=== PATIENT | male | born 1940 ===

== ENCOUNTER 2018-01-22 11:48 | Observation (INO) | payer MEDICARE, OTHER ==
--- NOTE | 2018-01-22 12:27 | ED PDOC ---
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 Pt went to doctor 's office for BLE numbness X 2 months, abdominal pain X 2 months and palpitations. Denies CP, SOB, BLACK, visual changes. Pt has been noncompliant with medications X 2 years and has not medically evaluated during that time. Past Medical History Reviewed: Nursing Documentation, Vital Signs Vital Signs: Last Vital Signs Temp 98.1 F 01/22/18 12:04 Pulse 110 H 01/22/18 12:04 Resp 18 01/22/18 12:04 BP 170/97 H 01/22/18 12:04 Pulse Ox 94 L 01/22/18 12:04 - Medical History PMH: HTN - Family History Family History: States: Unknown Family Hx - Living Arrangements Living Arrangements: With Family - Social History Current smoker - smoking cessation education provided: No Alcohol: None - Home Medications Home Medications: Ambulatory Orders Medication Instructions Recorded Metoprolol Tartrate 25 mg PO BID #40 tablet 01/23/18 - Allergies Allergies/Adverse Reactions: Allergies Allergy/AdvReac Type Severity Reaction Status Date / Time No Known Allergies Allergy Verified 01/22/18 12:01 Review of Systems Constitutional: Negative for: Fever, Chills Eyes: Negative for: Vision Change Cardiovascular: Positive for: Palpitations. Negative for: Chest Pain Respiratory: Negative for: Cough, Shortness of Breath Gastrointestinal: Positive for: Abdominal Pain. Negative for: Nausea, Vomiting , Diarrhea Genitourinary Male: Negative for: Dysuria, Hematuria Musculoskeletal: Negative for: Back Pain Skin: Negative for: Rash, Lesions Neurological: Positive for: Numbness. Negative for: Weakness, Incoordination, Change in Speech, Confusion, Seizures, Altered Mental Status, Headache, Dizziness Physical Exam - Reviewed Nursing Documentation Reviewed: Yes Vital Signs Reviewed: Yes - Physical Exam Appears: Positive for: Well, No Acute Distress Head Exam: Positive for: ATRAUMATIC, NORMAL INSPECTION Skin: Positive for: Normal Color, Warm, Dry Eye Exam: Positive for: Normal appearance, EOMI, PERRL Cardiovascular/Chest: Positive for: Tachycardia. Negative for: Irregularly Irregular Respiratory: Positive for: Normal Breath Sounds. Negative for: Rales, Rhonchi, Wheezing Gastrointestinal/Abdominal: Positive for: Bowel Sounds, Soft, Tenderness ( Minimal BLQ), Distended Extremity: Positive for: Normal ROM, Capillary Refill (<2 sec). Negative for: Tenderness, Deformity, Swelling Neurologic/Psych: Positive for: Alert, specialty foods cook II-XII, Oriented. Negative for: Motor/Sensory Deficits, Aphasia, Facial Droop - Laboratory Results Result Diagrams: 01/23/18 04:20 01/23/18 04:20 - ECG Interpretation Of ECG: Ectopic atrial tachy @ 107, ST depression inferiorly. O2 Sat by Pulse Oximetry: 94 Pulse Ox Interpretation: Abnormal - Physician Consult Information Time Consulting Physican Contacted: 13:56 Physician Contacted: Dave Shannon Outcome Of Conversation: Recommends Propranolol IV, admit to Hospitalist, Dr. Lara for Cardio consult. Medical Decision Making Medical Decision Makin yo male with ectopic tachycardia, abdominal pain and BLE numbness. - labs - EKG - CXR - CT abd/pelvis Accession No. : [id number] Patient Name / ID : JADEN BEAUCHAMP / [id number] Exam Date : 01/22/2018 12:35:52 ( Approved ) Study Comment : Sex / Age : M / 77Y Creator : Vinnie Riley MD Dictator : Vinnie Riley MD Forest Firefighter : Self Rising Flour Mixer : Vinnie Riley MD Approver2 : Report Date : 01/22/2018 12:52:52 My Comment : Date of service: 01/22/2018 HISTORY: Palpitations COMPARISON: No prior. FINDINGS: LUNGS: No active pulmonary disease. PLEURA: No significant pleural effusion identified, no pneumothorax apparent. CARDIOVASCULAR: No radiographic findings to suggest acute or significant cardiovascular disease. OSSEOUS STRUCTURES: No significant abnormalities. VISUALIZED UPPER ABDOMEN: Normal. OTHER FINDINGS: None. IMPRESSION: No active disease. CT FINDINGS: LOWER THORAX: Mild cardiomegaly. Bilateral basilar dependent atelectasis slightly grater at the right than the left sides. Tiny hiatal hernia identified. LIVER: Diffusely diminished attenuation is seen throughout the liver compatible with hepatic steatosis. No intrahepatic biliary dilation or definitive hepatic mass demonstated. GALLBLADDER AND BILE DUCTS: Unremarkable. PANCREAS: Unremarkable. No gross lesion or ductal dilatation. SPLEEN: Unremarkable. ADRENALS: Unremarkable. No mass. KIDNEYS AND URETERS: Unremarkable. No hydronephrosis. No solid mass VASCULATURE: Unremarkable. No aortic aneurysm. BOWEL: Stomach appears unremarkable. No bowel obstruction apparent. Left colonic diverticular changes are identfied without acute reaction related or marked mural thickening. Lack oral contrast limits evaluation the gastrointestinal tract throughout. APPENDIX: Normal appendix. PERITONEUM: Unremarkable. No free fluid. No free air. LYMPH NODES: Unremarkable. No enlarged lymph nodes. BLADDER: Unremarkable. REPRODUCTIVE: Mildly enlarged prostate gland. BONES: No acute fracture. OTHER FINDINGS: None. IMPRESSION: No acute abdominal or pelvic findings although left colonic diverticulosis is appreciated. 14:20 Dr. Marco drew. 15:00 Dr. Lara reviewed EKG, recommends Atenolol 25 mg PO daily, echo, Holter monitor and discharge home to follow-up with Dr. Shannon as outpatient. Disposition - Clinical Impression Clinical Impression: Ectopic atrial tachycardia - Patient ED Disposition Is Patient to be Admitted: Yes - Disposition Disposition Time: 14:01 Condition: STABLE - Pt Status Changed To: Hospital Disposition Of: Observation
[2018-01-22 12:49] LABS: BASO % 0.9 % (0.0-2.0); EOS # 0.3 K/uL (0.0-0.7); EOS % 6.8 % (0.0-4.0); HEMOGLOBIN 15.8 g/dL (12.0-18.0); LYMPH # 0.6 K/uL (1.0-4.3); LYMPH % 12.2 % (20.0-40.0); MEAN CELL VOLUME 104.4 fl (80.0-94.0); MEAN CORPUSCULAR HEMOGLOBIN 36.1 pg (27.0-31.0); MEAN CORPUSCULAR HGB CONC 34.6 g/dL (33.0-37.0); MEAN PLATELET VOLUME 9.8 fl (7.2-11.7); MONO # 0.4 K/uL (0.0-0.8); MONO % 8.6 % (0.0-10.0); NEUT # 3.6 K/uL (1.8-7.0); NEUT % 71.5 % (50.0-75.0); NRBC % 0.2 % (0.0-0.0); RBC 4.37 Mil/uL (4.40-5.90); RED CELL DISTRIBUTION WIDTH 13.7 % (11.5-14.5)
[2018-01-22 12:54] LABS: PROTHROMBIN TIME 11.2 Seconds (9.8-13.1)
--- NOTE | 2018-01-22 12:54 | RAD ---
Date of service: 01/22/2018 HISTORY: Palpitations COMPARISON: No prior. FINDINGS: LUNGS: No active pulmonary disease. PLEURA: No significant pleural effusion identified, no pneumothorax apparent. CARDIOVASCULAR: No radiographic findings to suggest acute or significant cardiovascular disease. OSSEOUS STRUCTURES: No significant abnormalities. VISUALIZED UPPER ABDOMEN: Normal. OTHER FINDINGS: None. IMPRESSION: No active disease.
[2018-01-22 12:57] LABS: PARTIAL THROMBOPLASTIN TIME 31.5 Seconds (25.6-37.1)
[2018-01-22 13:09] LABS: ALB/GLOB RATIO 1.3 (1.0-2.1); ALBUMIN 4.3 g/dL (3.5-5.0); ALT/SGPT 82 U/L (21-72); AST/SGOT 118 U/L (17-59); BLOOD UREA NITROGEN 13 mg/dl (9-20); CALCIUM 9.9 mg/dL (8.4-10.2); GFR AFRICAN-AMERICAN > 60; GFR NON-AFRICAN AMERICAN > 60
[2018-01-22] MEDS ORDERED: Iohexol 300 100 ML IJ ONE (13:21)
[2018-01-22] MEDS ORDERED: Sodium Chloride 0.9% 50 ML IV ONE (13:22)
[2018-01-22] MEDS ORDERED: Propranolol 1 mg/mL Inj IV STA (13:55)
[2018-01-22] MEDS ORDERED: Propranolol 1 mg/mL Inj ONE (14:23)
--- NOTE | 2018-01-22 14:42 | CT ---
Date of service: 01/22/2018 PROCEDURE: CT Abdomen and Pelvis with contrast HISTORY: BLQ pain COMPARISON: None. TECHNIQUE: Following the intravenous administration of iodinated contrast material, a CT examination of the abdomen and pelvis performed from the domes of the diaphragms to the symphysis pubis with reformatted datasets provided in axial, sagittal and coronal planes. Oral contrast was not administered as per referring physician request. Contrast dose: Omnipaque 300, 95 cc Radiation dose: Total exam DLP = 800.53 mGy-cm. This CT exam was performed using one or more of the following dose reduction techniques: Automated exposure control, adjustment of the mA and/or kV according to patient size, and/or use of iterative reconstruction technique. FINDINGS: LOWER THORAX: Mild cardiomegaly. Bilateral basilar dependent atelectasis slightly greater at the right than left sides. Tiny hiatal hernia is identified. LIVER: Diffusely diminished attenuation is seen throughout the liver compatible with hepatic steatosis. No intrahepatic biliary dilatation or definitive hepatic mass demonstrated. GALLBLADDER AND BILE DUCTS: Unremarkable. PANCREAS: Unremarkable. No gross lesion or ductal dilatation. SPLEEN: Unremarkable. ADRENALS: Unremarkable. No mass. KIDNEYS AND URETERS: Unremarkable. No hydronephrosis. No solid mass. VASCULATURE: Unremarkable. No aortic aneurysm. BOWEL: Stomach appears unremarkable. No bowel obstruction apparent. Left colonic diverticular changes are identified which are concentrated at the sigmoid segment without acute reaction related or marked mural thickening. Lack of oral contrast limits evaluation the gastrointestinal tract. APPENDIX: Normal appendix. PERITONEUM: Unremarkable. No free fluid. No free air. LYMPH NODES: Unremarkable. No enlarged lymph nodes. BLADDER: Unremarkable. REPRODUCTIVE: Unremarkable. BONES: No acute fracture. OTHER FINDINGS: None. IMPRESSION: No acute abdominal or pelvic findings although left colonic diverticulosis is appreciated. Hepatic steatosis.
--- NOTE | 2018-01-22 15:50 | CP.PCM.HP ---
History of Present Illness - History of Present Illness History of Present Illness: 77 yo male with history of HTN, COPD and Dementia sent here by his radiography technician for admission because of atrial tachycardia. Denied SOB or chest pain but complained of increasing abdominal girth in the past 2 months and numbness of the legs. Noncompliant with medications for 2 yrs. Present on Admission - Present on Admission Any Indicators Present on Admission: No History of DVT/PE: No History of Uncontrolled Diabetes: No Urinary Catheter: No Decubitus Ulcer Present: No Review of Systems - Review of Systems All systems: reviewed and no additional remarkable complaints except (aside from those mentioned above, 12 point system review were negative by me) Past Patient History - Tetanus Immunizations Tetanus Immunization: Unknown - Past Social History Smoking Status: Former Smoker Chewing Tobacco Use: No Cigar Use: No Alcohol: > 2 Drinks/Day (drinks 2 shots of Baccardi daily) Home Situation {Lives}: With Family - CARDIAC Hx Cardia Arrhythmia: Yes Hx Hypertension: Yes - PULMONARY Hx Respiratory Disorders: Yes Hx Chronic Obstructive Pulmonary Disease (COPD): Yes - NEUROLOGICAL Hx Dementia: Yes - HEENT Hx Cataracts: Yes Hx Glaucoma: Yes - RENAL Hx Chronic Kidney Disease: No - ENDOCRINE/METABOLIC Hx Endocrine Disorders: No - HEMATOLOGICAL/ONCOLOGICAL Hx Blood Disorders: No - INTEGUMENTARY Hx Dermatological Problems: No - MUSCULOSKELETAL/RHEUMATOLOGICAL Hx Musculoskeletal Disorders: No - GASTROINTESTINAL Hx Gastritis: Yes - GENITOURINARY/GYNECOLOGICAL Hx Genitourinary Disorders: No - PSYCHIATRIC Hx Psychophysiologic Disorder: Yes - SURGICAL HISTORY Other/Comment: glaucoma, cataract - ANESTHESIA Hx Anesthesia: Yes Hx Anesthesia Reactions: No Meds Allergies/Adverse Reactions: Allergies Allergy/AdvReac Type Severity Reaction Status Date / Time No Known Allergies Allergy Verified 01/22/18 12:01 Physical Exam - Constitutional Appears: No Acute Distress - Head Exam Head Exam: ATRAUMATIC - Eye Exam Eye Exam: absent: Scleral icterus - ENT Exam ENT Exam: Mucous Membranes Moist - Neck Exam Neck exam: Negative for: Meningismus - Respiratory Exam Respiratory Exam: absent: Rales, Rhonchi, Wheezes, Respiratory Distress - Cardiovascular Exam Cardiovascular Exam: REGULAR RHYTHM, +S1, +S2 - GI/Abdominal Exam GI & Abdominal Exam: Soft (globularly enlarged). absent: Tenderness - Rectal Exam Rectal Exam: Deferred - Extremities Exam Extremities exam: Negative for: calf tenderness, pedal edema - Back Exam Back exam: NORMAL INSPECTION - Neurological Exam Neurological exam: Alert, Oriented x3 - Psychiatric Exam Psychiatric exam: Normal Affect - Skin Skin Exam: Dry, Intact Results - Vital Signs Recent Vital Signs: Last Vital Signs Temp 99.2 F 01/22/18 15:45 Pulse 81 01/22/18 15:45 Resp 18 01/22/18 15:45 BP 149/89 01/22/18 15:45 Pulse Ox 95 01/22/18 15:45 - Labs Result Diagrams: 01/22/18 12:30 01/22/18 12:30 Labs: Laboratory Results - last 24 hr 01/22/18 01/22/18 01/22/18 12:30 12:30 12:30 WBC 5.0 RBC 4.37 L Hgb 15.8 Hct 45.6 MCV 104.4 H MCH 36.1 H MCHC 34.6 RDW 13.7 Plt Count 102 L MPV 9.8 Neut % (Auto) 71.5 Lymph % (Auto) 12.2 L [place] % (Auto) 8.6 Eos % (Auto) 6.8 H Baso % (Auto) 0.9 Neut # (Auto) 3.6 Lymph # (Auto) 0.6 L [place] # (Auto) 0.4 Eos # (Auto) 0.3 Baso # (Auto) 0.0 PT 11.2 INR 1.0 APTT 31.5 Sodium 141 Potassium 4.2 Chloride 104 Carbon Dioxide 27 Anion Gap 14 BUN 13 Creatinine 1.1 Est GFR ( Amer) > 60 Est GFR (Non-Af Amer) > 60 Random Glucose 97 Calcium 9.9 Total Bilirubin 2.1 H AST 118 H ALT 82 H Alkaline Phosphatase 112 Troponin I 0.0200 Total Protein 7.7 Albumin 4.3 Globulin 3.4 Albumin/Globulin Ratio 1.3 TSH 3rd Generation 1.06 Assessment & Plan - Assessment and Plan (Free Text) Assessment: 77 yo male with history of HTN, COPD and Dementia sent here by his radiography technician for admission because of atrial tachycardia. Denied SOB or chest pain but complained of increasing abdominal girth in the past 2 months and numbness of the legs. Noncompliant with medications for 2 yrs. 1. Atrial Tachycardia rate controlled after 1mg of IV Propranolol Metoprolol 25mg PO q 12hrs 2. Increased Abdominal Girth CT scan of abdomen: fatty liver, no ascites 3. HTN BP stable Metoprolol 25mg PO q 12hrs 4. COPD CXray negative for any active disease asymptomatic Duonebs q 4hrs prn for SOB/wheezing
--- NOTE | 2018-01-22 18:18 | CARD ---
APPROVED REPORT Date of service: 01/22/2018 <Conclusion> Atrial flutter 2:1 conduction Left axis deviation Right bundle branch block Marked ST abnormality, possible inferior subendocardial injury Abnormal ECG
--- NOTE | 2018-01-22 18:49 | US ---
Date of service: 01/22/2018 PROCEDURE: Bilateral lower extremity venous duplex Doppler. HISTORY: h/o DVT? COMPARISON: None available. TECHNIQUE: Bilateral common femoral, superficial femoral, popliteal and posterior tibial veins were evaluated. Flow was assessed with color Doppler, compressibility, assessment of phasic flow and augmentation response. FINDINGS: COMMON FEMORAL VEIN: Right CFV: Unremarkable. Left CFV: Unremarkable. SUPERFICIAL FEMORAL VEIN: Right SFV: Unremarkable. Left SFV: Unremarkable. POPLITEAL VEIN: Right Popliteal: Unremarkable. Left Popliteal: Unremarkable. POSTERIOR TIBIAL VEIN: Right PTV: Unremarkable. Left PTV: Unremarkable. OTHER FINDINGS: None. IMPRESSION: No evidence of deep venous thrombosis.
--- NOTE | 2018-01-22 18:50 | CP.PCM.CON ---
History of Present Illness - History of Present Illness History of Present Illness: 77 yo male admitted with atrial tachycardia , history of COPD, alcohol use medication noncompliance. Pt in ECHO lab unable to examine. Laboratories unremarkable except for elevated LFTs c/w alcohol use. Hemodynamically stable. Started on low dose Beta Felix. Past Patient History - Tetanus Immunizations Tetanus Immunization: Unknown - Past Social History Smoking Status: Former Smoker Chewing Tobacco Use: No Cigar Use: No Alcohol: > 2 Drinks/Day (drinks 2 shots of Baccardi daily) Home Situation {Lives}: With Family - CARDIAC Hx Cardiac Disorders: Yes Hx Hypertension: Yes - PULMONARY Hx Respiratory Disorders: No Other/Comment: smoking - NEUROLOGICAL Hx Neurological Disorder: No - HEENT Hx Glaucoma: Yes Other/Comment: cataracts - RENAL Hx Chronic Kidney Disease: No - ENDOCRINE/METABOLIC Hx Endocrine Disorders: No - HEMATOLOGICAL/ONCOLOGICAL Hx Blood Disorders: No Hx Blood Transfusions: No - INTEGUMENTARY Hx Dermatological Problems: No - MUSCULOSKELETAL/RHEUMATOLOGICAL Hx Musculoskeletal Disorders: No - GASTROINTESTINAL Hx Gastrointestinal Disorders: Yes Hx Gastritis: Yes - GENITOURINARY/GYNECOLOGICAL Hx Genitourinary Disorders: No - PSYCHIATRIC Hx Psychophysiologic Disorder: No - SURGICAL HISTORY Hx Surgeries: Yes Other/Comment: glaucoma, cataract; varicose vein surgery 30 years ago per - ANESTHESIA Hx Anesthesia: Yes Hx Anesthesia Reactions: No Meds Allergies/Adverse Reactions: Allergies Allergy/AdvReac Type Severity Reaction Status Date / Time No Known Allergies Allergy Verified 01/22/18 12:01 - Medications Medications: Current Medications Docusate Sodium (Colace) 100 mg PO BID PRN PRN Reason: Constipation Last Admin: 01/22/18 17:33 Dose: 100 mg Enoxaparin Sodium (Lovenox) 40 mg SC DAILY [facility] PRN Reason: Protocol Metoprolol Tartrate (Lopressor) 25 mg PO Q12 [facility] Pantoprazole Sodium (Protonix Ec Tab) 40 mg PO DAILY [facility] Results - Vital Signs Recent Vital Signs: Last Vital Signs Temp 99.2 F 01/22/18 15:45 Pulse 84 01/22/18 16:40 Resp 18 01/22/18 16:40 BP 149/89 01/22/18 15:45 Pulse Ox 95 01/22/18 15:45 - Labs Result Diagrams: 01/22/18 12:30 01/22/18 12:30 Labs: Laboratory Results - last 24 hr 01/22/18 01/22/18 01/22/18 12:30 12:30 12:30 WBC 5.0 RBC 4.37 L Hgb 15.8 Hct 45.6 MCV 104.4 H MCH 36.1 H MCHC 34.6 RDW 13.7 Plt Count 102 L MPV 9.8 Neut % (Auto) 71.5 Lymph % (Auto) 12.2 L [place] % (Auto) 8.6 Eos % (Auto) 6.8 H Baso % (Auto) 0.9 Neut # (Auto) 3.6 Lymph # (Auto) 0.6 L [place] # (Auto) 0.4 Eos # (Auto) 0.3 Baso # (Auto) 0.0 PT 11.2 INR 1.0 APTT 31.5 Sodium 141 Potassium 4.2 Chloride 104 Carbon Dioxide 27 Anion Gap 14 BUN 13 Creatinine 1.1 Est GFR ( Amer) > 60 Est GFR (Non-Af Amer) > 60 Random Glucose 97 Calcium 9.9 Total Bilirubin 2.1 H AST 118 H ALT 82 H Alkaline Phosphatase 112 Troponin I 0.0200 NT-Pro-B Natriuret Pep Total Protein 7.7 Albumin 4.3 Globulin 3.4 Albumin/Globulin Ratio 1.3 TSH 3rd Generation 1.06 01/22/18 17:00 WBC RBC Hgb Hct MCV MCH MCHC RDW Plt Count MPV Neut % (Auto) Lymph % (Auto) [place] % (Auto) Eos % (Auto) Baso % (Auto) Neut # (Auto) Lymph # (Auto) [place] # (Auto) Eos # (Auto) Baso # (Auto) PT INR APTT Sodium Potassium Chloride Carbon Dioxide Anion Gap BUN Creatinine Est GFR ( Amer) Est GFR (Non-Af Amer) Random Glucose Calcium Total Bilirubin AST ALT Alkaline Phosphatase Troponin I NT-Pro-B Natriuret Pep 286 Total Protein Albumin Globulin Albumin/Globulin Ratio TSH 3rd Generation Assessment & Plan - Assessment and Plan (Free Text) Assessment: EKG c/w atrial tachycardia 2:1 block ( lead II) , hemodynamically stable. No chest pain clinical CHF. Pt stable for DC in am and outpt f/u on Beta Felix CT abdomen unremarkable Pt can have outpt Holter and f/u with Dr. Garcia shirt finisher Echo pending
[2018-01-22] MEDS ORDERED: Pneumococcal 23-Valent Vaccine IM ONE (22:33)
[2018-01-23 05:57] LABS: EOS # 0.5 K/uL (0.0-0.7); HEMOGLOBIN 13.9 g/dL (12.0-18.0); LYMPH # 0.9 K/uL (1.0-4.3); LYMPH % 21.2 % (20.0-40.0); MEAN CELL VOLUME 106.5 fl (80.0-94.0); MEAN CORPUSCULAR HEMOGLOBIN 36.2 pg (27.0-31.0); MONO # 0.4 K/uL (0.0-0.8); MONO % 10.4 % (0.0-10.0); NEUT # 2.3 K/uL (1.8-7.0); NEUT % 56.4 % (50.0-75.0); NRBC % 0.1 % (0.0-0.0); RBC 3.84 Mil/uL (4.40-5.90); RED CELL DISTRIBUTION WIDTH 13.8 % (11.5-14.5); WHITE BLOOD COUNT 4.1 K/uL (4.8-10.8)
[2018-01-23 06:22] LABS: BLOOD UREA NITROGEN 16 mg/dl (9-20); CALCIUM 9.2 mg/dL (8.4-10.2); GFR AFRICAN-AMERICAN > 60; GFR NON-AFRICAN AMERICAN 54; HDL CHOLESTEROL 44 MG/DL (30-70)
[2018-01-23 06:23] LABS: LDL CHOLESTEROL 75 mg/dL (0-129)
[2018-01-23] MEDS ORDERED: Enoxaparin 40 mg Syringe SC SCH (09:00)
[2018-01-23] MEDS ORDERED: Pantoprazole 40 mg EC Tab PO SCH (09:00)
--- NOTE | 2018-01-23 10:55 | CP.PCM.DIS ---
Provider - Provider Date of Admission: 01/22/18 14:01 Attending physician: Boone Painter MD Primary care physician: Dr Whitehead Consults: Dr Lara Time Spent in preparation of Discharge (in minutes): 25 Diagnosis - Discharge Diagnosis (1) Ectopic atrial tachycardia Status: Acute Comment: rate maintained to normal range with Lopressor 25mg PO q 12hrs Hospital Course - Lab Results Lab Results: Most Recent Lab Values WBC 4.1 K/uL (4.8-10.8) L 01/23/18 04:20 RBC 3.84 Mil/uL (4.40-5.90) L 01/23/18 04:20 Hgb 13.9 g/dL (12.0-18.0) 01/23/18 04:20 Hct 40.9 % (35.0-51.0) 01/23/18 04:20 MCV 106.5 fl (80.0-94.0) H D 01/23/18 04:20 MCH 36.2 pg (27.0-31.0) H 01/23/18 04:20 MCHC 34.0 g/dL (33.0-37.0) 01/23/18 04:20 RDW 13.8 % (11.5-14.5) 01/23/18 04:20 Plt Count 80 K/uL (130-400) L D 01/23/18 04:20 MPV 10.0 fl (7.2-11.7) 01/23/18 04:20 Neut % (Auto) 56.4 % (50.0-75.0) 01/23/18 04:20 Lymph % (Auto) 21.2 % (20.0-40.0) 01/23/18 04:20 [place] % (Auto) 10.4 % (0.0-10.0) H 01/23/18 04:20 Eos % (Auto) 11.0 % (0.0-4.0) H 01/23/18 04:20 Baso % (Auto) 1.0 % (0.0-2.0) 01/23/18 04:20 Neut # (Auto) 2.3 K/uL (1.8-7.0) 01/23/18 04:20 Lymph # (Auto) 0.9 K/uL (1.0-4.3) L 01/23/18 04:20 [place] # (Auto) 0.4 K/uL (0.0-0.8) 01/23/18 04:20 Eos # (Auto) 0.5 K/uL (0.0-0.7) 01/23/18 04:20 Baso # (Auto) 0.0 K/uL (0.0-0.2) 01/23/18 04:20 PT 11.2 Seconds (9.8-13.1) 01/22/18 12:30 INR 1.0 01/22/18 12:30 APTT 31.5 Seconds (25.6-37.1) 01/22/18 12:30 Sodium 139 mmol/l (132-148) 01/23/18 04:20 Potassium 4.1 MMOL/L (3.6-5.0) 01/23/18 04:20 Chloride 101 mmol/L (98-107) 01/23/18 04:20 Carbon Dioxide 29 mmol/L (22-30) 01/23/18 04:20 Anion Gap 13 (10-20) 01/23/18 04:20 BUN 16 mg/dl (9-20) 01/23/18 04:20 Creatinine 1.3 mg/dl (0.8-1.5) 01/23/18 04:20 Est GFR ( Amer) > 60 01/23/18 04:20 Est GFR (Non-Af Amer) 54 01/23/18 04:20 Random Glucose 113 mg/dL (75-110) H 01/23/18 04:20 Calcium 9.2 mg/dL (8.4-10.2) 01/23/18 04:20 Total Bilirubin 2.1 mg/dl (0.2-1.3) H 01/22/18 12:30 AST 118 U/L (17-59) H 01/22/18 12:30 ALT 82 U/L (21-72) H 01/22/18 12:30 Alkaline Phosphatase 112 U/L (38-126) 01/22/18 12:30 Troponin I 0.0200 ng/mL (0.00-0.120) 01/22/18 12:30 NT-Pro-B Natriuret Pep 286 pg/ml (0-900) 01/22/18 17:00 Total Protein 7.7 G/DL (6.3-8.2) 01/22/18 12:30 Albumin 4.3 g/dL (3.5-5.0) 01/22/18 12:30 Globulin 3.4 gm/dL (2.2-3.9) 01/22/18 12:30 Albumin/Globulin Ratio 1.3 (1.0-2.1) 01/22/18 12:30 Triglycerides 120 mg/DL (0-149) 01/23/18 04:20 Cholesterol 142 mg/dL (0-199) 01/23/18 04:20 LDL Cholesterol Direct 75 mg/dL (0-129) 01/23/18 04:20 HDL Cholesterol 44 MG/DL (30-70) 01/23/18 04:20 TSH 3rd Generation 1.06 mIU/ML (0.46-4.68) 01/22/18 12:30 - Hospital Course Hospital Course: 77 yo male with history of HTN, COPD and Dementia 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 Denied any complaint aside from increasing abdominal girth. After given Propranolol 1mg IV in the ER, his rate went down to normal range. Started in the unit with Lopressor 25mg PO q 12hrs and was able to maintain a stable rate. Discharge Exam - Head Exam Head Exam: ATRAUMATIC - Eye Exam Eye Exam: Normal appearance - ENT Exam ENT Exam: Mucous Membranes Moist - Respiratory Exam Respiratory Exam: absent: Rales, Rhonchi, Wheezes, Respiratory Distress - Cardiovascular Exam Cardiovascular Exam: REGULAR RHYTHM, +S1, +S2 - GI/Abdominal Exam GI & Abdominal Exam: Soft. absent: Tenderness - Rectal Exam Rectal Exam: Deferred - Neurological Exam Neurological exam: Alert, Oriented x3 - Psychiatric Exam Psychiatric exam: Normal Affect - Skin Skin Exam: Dry, Intact Discharge Plan - Discharge Medications Prescriptions: Metoprolol Tartrate 25 mg PO BID #40 tablet - Follow Up Plan Condition: FAIR Disposition: HOME/ ROUTINE
[2018-01-23 13:00] VITALS: BP 122/75; PULSE 67; RESP 18; TEMP 98.6
[2018-01-24 18:18] VITALS: O2SAT 94
== END 2018-01-23 13:51 | disposition home or self-care (01) ==
LOC: H.ER 11:48 → INTOOBSV 14:01 → H.ERHOLD 14:01 → H.TEL 15:23
DX: I47.1 Supraventricular tachycardia (principal); J44.9 Chronic obstructive pulmonary disease, unspecified; Z23 Encounter for immunization; I11.9 Hypertensive heart disease without heart failure; E78.2 Mixed hyperlipidemia; E55.9 Vitamin D deficiency, unspecified; R73.03 Prediabetes; Z91.14 Patient's other noncompliance with medication regimen; F03.90 Unspecified dementia, unspecified severity, without behavioral disturbance, psychotic disturbance, mood disturbance, and anxiety; Z87.891 Personal history of nicotine dependence; K29.70 Gastritis, unspecified, without bleeding; K76.0 Fatty (change of) liver, not elsewhere classified; R79.89 Other specified abnormal findings of blood chemistry
CPT/HCPCS: 36415; 71045; 74177; 80048; 80053; 80061; 83880; 84443; 84484; 85025; 85610; 85730; 90732; 93005; 93970; 99285; G0009; G0378; J1650; J1800; Q9967

== ENCOUNTER 2018-06-07 09:15 | Emergency (ER) | payer MEDICARE ==
[2018-06-07 09:21] VITALS: BMI 31.6
[2018-06-07] MEDS ORDERED: Sodium Chloride 0.9% 1,000 ML IV STA (09:51)
[2018-06-07] MEDS ORDERED: Iohexol 240 (50 ml) PO ONE (09:51)
[2018-06-07] MEDS ORDERED: Iohexol 240 (50 ml) ONE (09:59)
--- NOTE | 2018-06-07 10:05 | ED PDOC ---
HPI: Abdomen Time Seen by Provider: 06/07/18 09:31 Chief Complaint (Nursing): Abdominal Pain Chief Complaint (Provider): Abdominal Pain History Per: Patient History/Exam Limitations: no limitations Onset/Duration Of Symptoms: Days (x7) Current Symptoms Are (Timing): Still Present Additional Complaint(s): 78 year old male with pmHx of HTN, presents to ED with a complaint of upper abdominal pain for 7 days. He denies any chest pain, shortness of breath, nausea, vomiting, diarrhea, constipation, leg pain or swelling. PCP: Dr. Donny Tinoco Past Medical History Reviewed: Historical Data, Nursing Documentation, Vital Signs Vital Signs: Last Vital Signs Temp 97.8 F 06/07/18 09:20 Pulse 59 L 06/07/18 09:20 Resp BP 185/94 H 06/07/18 09:20 Pulse Ox 95 06/07/18 09:20 - Medical History PMH: Cardia Arrhythmia, COPD, Dementia, Gastritis, HTN Denies: Chronic Kidney Disease - Family History Family History: States: Unknown Family Hx - Home Medications Home Medications: Ambulatory Orders Medication Instructions Recorded Metoprolol Tartrate 25 mg PO BID #40 tablet 01/23/18 Famotidine [Pepcid] 20 mg PO DAILY PRN #6 tab 06/07/18 Ibuprofen [Motrin] 600 mg PO TID 7 Days tab 06/07/18 - Allergies Allergies/Adverse Reactions: Allergies Allergy/AdvReac Type Severity Reaction Status Date / Time No Known Allergies Allergy Verified 01/22/18 12:01 Review of Systems ROS Statement: Except As Marked, All Systems Reviewed And Found Negative Cardiovascular: Negative for: Chest Pain Respiratory: Negative for: Shortness of Breath Gastrointestinal: Positive for: Abdominal Pain (upper). Negative for: Nausea, Vomiting, Diarrhea, Constipation Musculoskeletal: Negative for: Leg Pain (or swelling bilaterally) Physical Exam - Reviewed Nursing Documentation Reviewed: Yes Vital Signs Reviewed: Yes - Physical Exam Appears: Positive for: Non-toxic, No Acute Distress Head Exam: Positive for: ATRAUMATIC, NORMAL INSPECTION, NORMOCEPHALIC Skin: Positive for: Normal Color Eye Exam: Positive for: Normal appearance ENT: Positive for: Normal ENT Inspection. Negative for: Pharyngeal Erythema Neck: Positive for: Normal, Supple Cardiovascular/Chest: Positive for: Regular Rate, Rhythm, Chest Non Tender Respiratory: Positive for: Normal Breath Sounds. Negative for: Wheezing, Respiratory Distress Pulses-Dorsalis Pedis (L): 2+ Pulses-Dorsalis Pedis (R): 2+ Gastrointestinal/Abdominal: Positive for: Soft, Tenderness (diffuse) Back: Positive for: Normal Inspection. Negative for: L CVA Tenderness, R CVA Tenderness Extremity: Positive for: Normal ROM (upper/lower), Capillary Refill (< 2 seconds to upper/lower bilaterally) Neurologic/Psych: Positive for: Alert, Oriented. Negative for: Motor/Sensory Deficits - Laboratory Results Result Diagrams: 06/07/18 10:10 06/07/18 10:10 Interpretation Of Abn Labs: no acute Urine dip results: Negative for: Leukocyte Esterase, Nitrate - ECG ECG: Positive for: Interpreted By Me, Viewed By Me ECG Rhythm: Positive for: Sinus Rhythm, Right Bundle Branch Block O2 Sat by Pulse Oximetry: 95 (RA) Pulse Ox Interpretation: Normal - CT Scan/US ct Other Rad Studies (CT/US): Read By Radiologist Other Rad Interpretation: ascites, liver cirrhosis, splenomegaly - Progress ED Course And Treament: 1336: Stable. Pain free. Tolerated PO. Fu with pcp. No acute conditions identified. Medical Decision Making Medical Decision Making: Time: 943 Initial Plan: * CT ABD/pelvis * EKG * Labs * IV fluids * Omnipaque 240 50ml PO * Pepcid 20mg IVP * Toradol 15mg IVP Time: 1315 --CT ABD/pelvis FINDINGS: LOWER THORAX: Unremarkable. LIVER: Normal size. No mass. No biliary dilatation. Vaguely nodular contour suggestive of possible hepatic cirrhosis. GALLBLADDER AND BILE DUCTS: Unremarkable. PANCREAS: Unremarkable. No gross lesion or ductal dilatation. SPLEEN: Splenomegaly. The spleen measures approximately 18.8 cm in greatest dimension. No focal mass. ADRENALS: Unremarkable. No mass. KIDNEYS AND URETERS: Unremarkable. No hydronephrosis. No solid mass. VASCULATURE: Unremarkable. No aortic aneurysm. There is atherosclerotic calcification of the abdominal aorta. BOWEL: Sigmoid diverticulosis without evidence of diverticulitis. No bowel obstruction . No other abnormal bowel loops are identified. APPENDIX: Normal appendix. PERITONEUM: Mild ascites. No pneumoperitoneum. LYMPH NODES: Unremarkable. No enlarged lymph nodes. BLADDER: Unremarkable. REPRODUCTIVE: Normal prostate BONES: No acute fracture. 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 OTHER FINDINGS: None. IMPRESSION: Splenomegaly. Questionable hepatic cirrhosis. Mild ascites. Sigmoid diverticulosis without evidence of diverticulitis. No other acute abnormality. --------- Scribe Attestation: Documented by Lamar Burnette, acting as a scribe for Kumar Ku MD. Provider Scribe Attestation: All medical record entries made by the Scribe were at my direction and personally dictated by me. I have reviewed the chart and agree that the record accurately reflects my personal performance of the history, physical exam, medical decision making, and the department course for this patient. I have also personally directed, reviewed, and agree with the discharge instructions and disposition. Disposition - Clinical Impression Clinical Impression: Abdominal pain, Ascites, Hepatic cirrhosis, Splenomegaly - Patient ED Disposition Is Patient to be Admitted: Yes Counseled Patient/Family Regarding: Studies Performed, Diagnosis - Disposition Disposition Time: 13:54 Condition: STABLE Additional Instructions: You have an enlarged spleen, liver issues, and ascites. You need to see the specialist without fail in 3 days. See your primary care doctor in 3 days. Usted tiene un bazo agrandado, problemas de hgado y ascitis. Necesitas semaj al especialista sin falta en 3 allison. Consulte a villegas mdico de atencin primaria en 3 allison. Prescriptions: Famotidine [Pepcid] 20 mg PO DAILY PRN #6 tab PRN Reason: Pain Ibuprofen [Motrin] 600 mg PO TID 7 Days tab Instructions: Stomach Ache and Stomach Upset, Fluid in the Belly (Ascites), Cirrhosis Forms: [employer] (Setswana) Print Language: CITIZEN OF [place]
[2018-06-07 10:24] LABS: BASO # 0.1 K/uL (0.0-0.2); BASO % 1.1 % (0.0-2.0); EOS % 18.5 % (0.0-4.0); HEMOGLOBIN 14.3 g/dL (12.0-18.0); LYMPH # 0.8 K/uL (1.0-4.3); LYMPH % 13.8 % (20.0-40.0); MEAN CELL VOLUME 108.1 fl (80.0-94.0); MEAN CORPUSCULAR HEMOGLOBIN 35.4 pg (27.0-31.0); MEAN CORPUSCULAR HGB CONC 32.7 g/dL (33.0-37.0); MEAN PLATELET VOLUME 9.3 fl (7.2-11.7); MONO # 0.5 K/uL (0.0-0.8); MONO % 9.7 % (0.0-10.0); NEUT # 3.2 K/uL (1.8-7.0); NEUT % 56.9 % (50.0-75.0); NRBC % 0.1 % (0.0-0.0); RBC 4.05 Mil/uL (4.40-5.90); RED CELL DISTRIBUTION WIDTH 13.8 % (11.5-14.5); WHITE BLOOD COUNT 5.6 K/uL (4.8-10.8)
[2018-06-07 10:31] LABS: INR 1.1; PROTHROMBIN TIME 12.7 Seconds (9.8-13.1)
[2018-06-07 10:34] LABS: PARTIAL THROMBOPLASTIN TIME 41.4 Seconds (25.6-37.1)
[2018-06-07 10:54] LABS: ALB/GLOB RATIO 1.1 (1.0-2.1); ALBUMIN 3.9 g/dL (3.5-5.0); ALT/SGPT 34 U/L (21-72); AST/SGOT 41 U/L (17-59); BLOOD UREA NITROGEN 12 mg/dl (9-20); CALCIUM 9.6 mg/dL (8.4-10.2); GFR NON-AFRICAN AMERICAN 54; LIPASE 93 U/L (23-300)
[2018-06-07] MEDS ORDERED: Sodium Chloride 0.9% 50 ML IV ONE (12:34)
[2018-06-07] MEDS ORDERED: Iohexol 300 100 ML IJ ONE (12:34)
[2018-06-07 13:06] VITALS: BP 164/76; PULSE 62; RESP 18
--- NOTE | 2018-06-07 13:18 | CT ---
Date of service: 06/07/2018 PROCEDURE: CT Abdomen and Pelvis with contrast HISTORY: abd pain COMPARISON: 01/22/2018 TECHNIQUE: Contrast dose: 95 mL Omnipaque 300 Radiation dose: Total exam DLP = 834.11 mGy-cm. This CT exam was performed using one or more of the following dose reduction techniques: Automated exposure control, adjustment of the mA and/or kV according to patient size, and/or use of iterative reconstruction technique. FINDINGS: LOWER THORAX: Unremarkable. LIVER: Normal size. No mass. No biliary dilatation. Vaguely nodular contour suggestive of possible hepatic cirrhosis. GALLBLADDER AND BILE DUCTS: Unremarkable. PANCREAS: Unremarkable. No gross lesion or ductal dilatation. SPLEEN: Splenomegaly. The spleen measures approximately 18.8 cm in greatest dimension. No focal mass. ADRENALS: Unremarkable. No mass. KIDNEYS AND URETERS: Unremarkable. No hydronephrosis. No solid mass. VASCULATURE: Unremarkable. No aortic aneurysm. There is atherosclerotic calcification of the abdominal aorta. BOWEL: Sigmoid diverticulosis without evidence of diverticulitis. No bowel obstruction. No other abnormal bowel loops are identified. APPENDIX: Normal appendix. PERITONEUM: Mild ascites. No pneumoperitoneum. LYMPH NODES: Unremarkable. No enlarged lymph nodes. BLADDER: Unremarkable. REPRODUCTIVE: Normal prostate BONES: No acute fracture. 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 OTHER FINDINGS: None. IMPRESSION: Splenomegaly. Questionable hepatic cirrhosis. Mild ascites. Sigmoid diverticulosis without evidence of diverticulitis. No other acute abnormality.
[2018-06-07 13:31] VITALS: O2SAT 95
[2018-06-07 14:22] VITALS: TEMP 98.1
--- NOTE | 2018-06-07 23:23 | CARD ---
APPROVED REPORT Date of service: 06/07/2018 EKG Measurement Heart [id number] <Conclusion> Normal sinus rhythm Left axis deviation Right bundle branch block Abnormal ECG
== END 2018-06-07 14:15 | disposition home or self-care (01) ==
LOC: H.ER 09:15
DX: R10.10 Upper abdominal pain, unspecified (principal); K70.31 Alcoholic cirrhosis of liver with ascites; R16.1 Splenomegaly, not elsewhere classified; F03.90 Unspecified dementia, unspecified severity, without behavioral disturbance, psychotic disturbance, mood disturbance, and anxiety; I10 Essential (primary) hypertension; I45.10 Unspecified right bundle-branch block; J44.9 Chronic obstructive pulmonary disease, unspecified; K57.30 Diverticulosis of large intestine without perforation or abscess without bleeding
CPT/HCPCS: 74177; 80053; 83690; 84484; 85025; 85610; 85730; 93005; 96374; 96375; 99284; J1885; J7030; Q9966; Q9967